=== PATIENT | female | born 1960 | race Caucasian/White ===

== ENCOUNTER 2019-05-27 14:40 | Outpatient (CLI) | payer MEDICARE, MEDICAID, SELFPAY ==
--- NOTE | ~2019-05-27 | CT_ITS ---
EXAMINATION: CT lung screening DATE: 05/27/2019 15:03 INDICATION: Personal history of tobacco dependence, current smoker with 38 pack year history TECHNIQUE: Computed tomography (CT) of the chest was performed without intravenous contrast. The dose -length product (DLP) was 75.15 mGy-cm. Automated exposure control and iterative reconstruction techn leaselockue were employed. COMPARISON: 02/15/2018 FINDINGS: There is a 2 mm nodule of the right upper lobe on image 42. There is a 3 mm nodule of the l eft lower lobe on image 82. The lungs are free of focal airspace opacities. No pathologically enlarge d thoracic lymph nodes are identified. The heart size is normal. Ruptured bilateral breast implants a re again noted. There is no pleural effusion or pneumothorax. A 9 mm cyst is noted in the right hepat ic lobe. There is mild thoracic spondylosis. IMPRESSION: 1. Lung-RADS category 2: Benign appearance or behavior. Continue annual screening with noncontrast lo w-dose chest CT in 12 months. Reviewed, dictated and finalized at location A. IMPRESSION: 1. Lung-RADS category 2: Benign appearance or behavior. Continue annual screeni ng with noncontrast low-dose chest CT in 12 months.
== END 2019-05-27 14:41 | disposition home or self-care (01) ==
PROVIDERS: PCP Emergency Medicine; Visit Provider Emergency Medicine
DX: Z12.2 Encounter for screening for malignant neoplasm of respiratory organs (principal); Z87.891 Personal history of nicotine dependence
CPT/HCPCS: G0297

== ENCOUNTER 2019-07-23 10:09 | Outpatient (CLI) | payer MEDICARE, MEDICAID, SELFPAY ==
--- NOTE | ~2019-07-23 | CT_ITS ---
EXAMINATION: CT abdomen pelvis wo/w con EXAM DATE: 07/23/2019 10:59 INDICATION: Hematuria, weight loss. TECHNIQUE: Spiral CT of the abdomen and pelvis was performed without contrast. The patient was then injected with small bolus intravenous Omnipaque 350, followed by delay of approximately 10 minutes to allow collecting system to opacify. A post contrast scan abdomen and pelvis was performed during inj ection of remaining contrast. A total of 130 cc intravenous contrast was administered. The dose-monet th product (DLP) for this examination was 991.46 mGy-cm. The exposure was tailored according to khushbu ent size (auto mA exposure control), and iterative reconstruction (ASIR) was used as additional dose reduction technique. There is no prior study for comparison. FINDINGS: Calcifications in the pelvis are believed to be phleboliths. There is no hydronephrosis or nephrolithiasis. The kidneys enhance symmetrically. There are no suspicious renal lesions. The ca lyces and opacified portions of ureters are unremarkable, without filling defects or focal suspicious strictures. The bladder is unremarkable. The uterus is unremarkable. The liver, spleen, adrenal glands and pancreas are unremarkable. Gallbladder is unremarkable. No bi liary obstruction. There is no retroperitoneal or pelvic lymphadenopathy. There is mild to moderat e scattered arteriosclerotic disease. The appendix is normal. There is minimal scattered colonic diverticulosis. There is no adjacent infl ammatory change to suggest diverticulitis. The stomach and small bowel are unremarkable. There is ex pected amount of colonic stool. No free intraperitoneal gas. The heart is normal in size. There are no pericardial or pleural effusions. The lung bases are unremarkable. There are no osteoblastic or osteolytic lesions identified. IMPRESSION: 1. No suspicious genitourinary findings. Reviewed, dictated and finalized at location A.
[2019-07-23 10:38] LABS: Estimated Glomerular Filt Rate 57
== END 2019-07-23 10:10 | disposition home or self-care (01) ==
LOC: ANHIMG 10:12
PROVIDERS: PCP Emergency Medicine; Visit Provider Emergency Medicine
DX: R31.9 Hematuria, unspecified (principal); R63.4 Abnormal weight loss
CPT/HCPCS: 36415; 74178; Q9967

== ENCOUNTER 2020-09-09 10:03 | Outpatient (CLI) | payer MEDICARE, SELFPAY ==
--- NOTE | ~2020-09-09 | CT_ITS ---
EXAMINATION: CT lung screening DATE: 09/09/2020 10:27 INDICATION: Personal history of nicotine dependence, current smoker with 38 pack year history TECHNIQUE: Computed tomography (CT) of the chest was performed without intravenous contrast. The dose -length product (DLP) was 68.81 mGy-cm. Automated exposure control and iterative reconstruction techn SiOnyxue were employed. COMPARISON: 05/27/2019 FINDINGS: There is a stable 2 mm nodule of the right upper lobe on image 46. There is a stable 3 mm n odule of the left lower lobe on image 88. No new pulmonary nodules are identified. The lungs are free of airspace opacities. No pathologically enlarged thoracic lymph nodes are identified. The heart siz e is normal. Ruptured bilateral breast glands are normal. There is mild thoracic spondylosis. There i s calcified coronary artery atherosclerosis. A 9 mm cyst is noted in the right hepatic lobe. IMPRESSION: 1. Lung-RADS category 2: Benign appearance or behavior. Continue annual screening with noncontrast lo w-dose chest CT in 12 months. Reviewed, dictated and finalized at location B. IMPRESSION: 1. Lung-RADS category 2: Benign appearance or behavior. Continue annual screeni ng with noncontrast low-dose chest CT in 12 months.
== END 2020-09-09 10:04 | disposition home or self-care (01) ==
PROVIDERS: PCP Emergency Medicine; Visit Provider Emergency Medicine
DX: Z12.2 Encounter for screening for malignant neoplasm of respiratory organs (principal); Z87.891 Personal history of nicotine dependence
CPT/HCPCS: 71271

== ENCOUNTER 2020-10-21 02:14 | Day surgery (SDC) | payer MEDICARE, SELFPAY ==
[2020-09-09 13:27] VITALS: BMI 22.8
--- NOTE | 2020-09-26 08:12 | SUR.PREOP ---
Patient called front counter attendant and stated she was unable to complete her prep this weekend and will not be coming in. Instructed patient to call the office. made aware.
[2020-10-06 14:48] VITALS: BMI 22.8
--- NOTE | 2020-10-21 10:39 | WPDANESEPPF ---
Anes - Initial Pre Proc Eval Procedure: Operation Date: 10/21/20 11:45 Proposed Procedures p Screening Colonoscopy - Kimo George MD Date/Time: 10/21/20 10:39 Surgeon: Kimo George MD Pre Op Diagnosis: neoplasm screening Patient Data Age: 60 Gender: F Height: 1.7 m Weight: 66 kg Allergies Allergy/AdvReac Type Severity Reaction Status Date / Time No Known Allergies Allergy Mild Verified 10/06/20 14:46 Home Medications Medication Instructions Recorded Confirmed Type albuterol sulfate 90 mcg INHALATION DAILY PRN 09/09/20 10/06/20 History fluticasone furoate-vilanterol 100 inh INHALATION DAILY 09/09/20 10/06/20 History [Breo Ellipta] hydrocodone-acetaminophen 7.5 tablet PO Q4-6H PRN 09/09/20 10/06/20 History rosuvastatin 20 mg PO DAILY 09/09/20 10/06/20 History umeclidinium [Incruse Ellipta] 1 inh INHALATION DAILY 09/09/20 10/06/20 History valacyclovir 500 mg PO DAILY 09/09/20 10/06/20 History sod picosulf 10 mg-magnes 3.5 160 ml PO DAILY #160 ml 09/30/20 Rx gram-citric 12 gram/160 mL oral solution Patient hx anesthesia problems: none Family hx anesthesia problems: none PMFSH Past Medical History Medical History Anxiety Chronic pain syndrome COPD (chronic obstructive pulmonary disease) Family History Family History Other Family history of cardiovascular disease Family history of emphysema Hypertension Social History Social History Smoking packs per day: 1.5 Smoking cigarettes per day: 30.0 Years smoked: 45 Smoking pack-years: 67.50 Smoking status: Heavy tobacco smoker Tobacco type: cigarettes Alcohol intake: never Substance use: current Substance use type: marijuana Other substance usage details: 1-2X monthly Living arrangements: alone Gender identity (if verbalized by the patient): Female Spiritual care concerns: No Anes - Eval Final PreProcedure Day of Procedure 10/21/20 10:39 Patient weight: normal Heart: regular rate and rhythm Lungs: decreased breath sounds Airway: Mallampati scale class II Neurological: alert and oriented Last oral intake: >/= 8 hours ASA classification: III Emergent: no Anesthetic plan: proceed Anesthesia type and monitoring: general GIVS and standard monitoring Informed Consent: The patient's anesthetic plan and its attendant risks and benefits were discussed with the patient/family/POA. Questions were solicited and answers provided to the satisfaction of the patient/family/POA.
[2020-10-21 10:45] VITALS: BP 161/73; PULSE 69; RESP 18; TEMP 36.1; O2SAT 97; BMI 22.4
[2020-10-21] MEDS: LACTATED RINGERS 1,000 ML 150 ML IV CONT (11:01)
--- NOTE | 2020-10-21 11:04 | PM.HPGS ---
History of Present Illness History of Present Illness Consent: Risks, benefits, and alternatives have been discussed and questions answered. Patient agrees to proceed with procedure. Chief complaint: neoplasm screening Narrative: Karma Segura is a 60 year old female here for first screening colonoscopy Review of Systems Constitutional: Constitutional: Denies headache(s) and Denies weakness Eyes: Eyes: Denies blurry vision ENT: Reports Normal hearing present, Denies headache(s) and Denies neck pain Cardiovascular: Cardiovascular: Denies chest pain and Denies dyspnea Respiratory: Respiratory: Denies dyspnea Gastrointestinal: Gastrointestinal: Reports no additional gastrointestinal complaints Genitourinary: Genitourinary: Denies dysuria Musculoskeletal: Musculoskeletal: Denies neck pain Integumentary/Breasts: Skin/Breast: Denies dry skin Neurologic: Reports Normal hearing present, Denies headache(s) and Denies weakness Psychiatric: Psychiatric: Denies anxiety Endocrine: Endocrine: Denies change in body appearance Hematologic/Lymphatic: Hematologic/Lymphatic: Denies easy bleeding Allergic/Immunologic: Allergic/Immunologic: Denies urticaria [facility] Past Medical History Medical History (Updated 10/21/20 @ 11:04 by Kimo George MD) Anxiety Chronic pain syndrome Colon cancer screening COPD (chronic obstructive pulmonary disease) Family History Family History Other Family history of cardiovascular disease Family history of emphysema Hypertension Social History Social History Smoking packs per day: 1.5 Smoking cigarettes per day: 30.0 Years smoked: 45 Smoking pack-years: 67.50 Smoking status: Heavy tobacco smoker Tobacco type: cigarettes Alcohol intake: never Substance use: current Substance use type: marijuana Other substance usage details: 1-2X monthly Living arrangements: alone Gender identity (if verbalized by the patient): Female Spiritual care concerns: No Meds Home Medications and Allergies Home Medications Medication Instructions Recorded Confirmed Type albuterol sulfate 90 mcg INHALATION DAILY PRN 09/09/20 10/06/20 History fluticasone furoate-vilanterol 100 inh INHALATION DAILY 09/09/20 10/06/20 History [Breo Ellipta] hydrocodone-acetaminophen 7.5 tablet PO Q4-6H PRN 09/09/20 10/21/20 History rosuvastatin 20 mg PO DAILY 09/09/20 10/06/20 History umeclidinium [Incruse Ellipta] 1 inh INHALATION DAILY 09/09/20 10/06/20 History valacyclovir 500 mg PO DAILY 09/09/20 10/06/20 History sod picosulf 10 mg-magnes 3.5 160 ml PO DAILY #160 ml 09/30/20 Rx gram-citric 12 gram/160 mL oral solution Allergies Allergy/AdvReac Type Severity Reaction Status Date / Time No Known Allergies Allergy Mild Verified 10/21/20 10:43 Vital Signs Vital Signs - 24 hr 10/21/20 10:45 Temperature 97 F L Pulse Rate 69 Respiratory Rate 18 Blood Pressure 161/73 H Pulse Oximetry 97 Exam Const: General: comfortable and no acute distress HENMT: General nose exam: Normal nares present Eyes: General: appearance normal, both eyes and all related structures Neck: Neck: no JVD Resp: Auscultation: clear to auscultation bilaterally Cardio: Rate: regular rate Rhythm: regular rhythm GI: Inspection: non-distended GI Palp: Yes Soft to palpation Skin: General skin exam: normal color Neuro: General: gait normal Speech: normal speech Extrem: General: normal to inspection Psych: Mental Status: mental status grossly normal Assessment and Plan Assessment and plan (1) Colon cancer screening: Code(s): Z12.11 - Encounter for screening for malignant neoplasm of colon Status: Acute Assessment and Plan: colonoscopy
[2020-10-21 11:30] VITALS: BP 118/71; PULSE 63; RESP 17; O2SAT 100
[2020-10-21 11:40] VITALS: BP 142/81; PULSE 58; RESP 17; O2SAT 98
[2020-10-21 11:48] VITALS: BP 152/81; PULSE 57; RESP 17; O2SAT 98
== END 2020-10-21 12:01 | disposition home or self-care (01) ==
PROVIDERS: PCP Emergency Medicine; Visit Provider Internal Medicine Gastroenterology
PROC: 0DJD8ZZ Inspection of Lower Intestinal Tract, Via Natural or Artificial Opening Endoscopic (ICD-10-PCS; CPT 45378; principal; 2020-10-21 11:45)
DX: Z12.11 Encounter for screening for malignant neoplasm of colon (principal); J44.9 Chronic obstructive pulmonary disease, unspecified; G89.29 Other chronic pain; F41.9 Anxiety disorder, unspecified; F17.210 Nicotine dependence, cigarettes, uncomplicated; K57.30 Diverticulosis of large intestine without perforation or abscess without bleeding
CPT/HCPCS: G0121; J2704; J7120

== ENCOUNTER 2021-02-22 09:06 | Outpatient (CLI) | payer MEDICARE, SELFPAY ==
--- NOTE | ~2021-02-22 | MM_ITS ---
EXAMINATION: MM screening [facility] BI w jesica HISTORY: Screening mammogram TECHNIQUE: Craniocaudal and mediolateral oblique 3-D tomosynthesis images were obtained and synthetic 2-D images were generated. CAD analysis was submitted and interpreted. COMPARISON: 09/10/2018 bilateral screening mammogram BREAST PARENCHYMAL COMPOSITION: There are scattered areas of fibroglandular density. FINDINGS: Again noted are bilateral ruptured implants. Some benign calcifications are noted along the implant margins. There is no evidence of suspicious mass, calcification, or architectural distortion to suggest malignancy in either breast. There has been no suspicious interval change. IMPRESSION: 1. No mammographic evidence of malignancy. 2. Recommend routine screening mammography in one year. BI-RADS Category 2: Benign finding(s). Reviewed, dictated and finalized at location A. NISTRATIVE SECRETARY
== END 2021-02-22 09:07 | disposition home or self-care (01) ==
PROVIDERS: PCP Emergency Medicine; Visit Provider Emergency Medicine
DX: Z12.31 Encounter for screening mammogram for malignant neoplasm of breast (principal)
CPT/HCPCS: 77063; 77067

== ENCOUNTER → 2021-05-01 13:14 | Outpatient (REF) | payer MEDICARE, SELFPAY | LOC: ANHLAB 13:14 | PROVIDERS: PCP Emergency Medicine; Visit Provider Nurse Practitioner | DX: D22.39 Melanocytic nevi of other parts of face (principal) | CPT/HCPCS: 88305 ==

== ENCOUNTER 2021-09-09 10:56 | Emergency (ER) | payer MEDICARE, SELFPAY ==
--- NOTE | ~2021-09-09 | XR_ITS ---
XR chest 2V DATE: 09/09/2021 11:54 INDICATION: Cough, shortness of breath TECHNIQUE: PA and lateral views COMPARISON: 09/09/2020 CT lung screening FINDINGS: Normal heart size. Aortic and great vessel calcification. No hilar or mediastinal enlargeme nt. Moderate hyperinflation of the lungs. No pulmonary infiltrate or consolidation, pleural effusion or pulmonary vascular congestion or pneumothorax. Osteopenia. Degenerative spurring of the thoracic spine. IMPRESSION: Moderate hyperinflation; no active cardiopulmonary disease Reviewed, dictated and finalized at location A.
[2021-09-09 11:04] VITALS: BP 155/68; PULSE 66; RESP 18; TEMP 36.2; O2SAT 95
--- NOTE | 2021-09-09 11:09 | ECG_ITS ---
Measurements Intervals [place] Rate: 62 P: 62 MA: 181 QRS: -12 QRSD: 97 T: 54 QT: 412 QTc: 420 Interpretive Statements SINUS RHYTHM NORMAL ECG Electronically Signed On 09-09-2021 12:00:55 CDT by Bal Alvarez D.O.
[2021-09-09 11:30] LABS: Basophils Absolute Auto 0.1 K/mm3 (0.0-0.1); Basophils Percent Auto 0.5 % (0.2-1.2); Eosinophils Percent Auto 0.4 % (0-4.4); Hematocrit 39.7 % (37.0-47.0); Hemoglobin 12.6 g/dL (12.0-15.0); Immature Granulocyte Absolute 0.08 K/mm3 (0.00-0.031); Immature Granulocyte Percent A 0.8 % (0-0.5); Lymphocytes Absolute Auto 2.38 K/mm3 (0.9-3.2); Lymphocytes Percent Auto 23.7 % (18.3-44.2); Mean Corpuscular HGB Conc 31.7 g/dl (32-36); Mean Corpuscular Hemoglobin 32.1 pg (26-34); Mean Corpuscular Volume 101.3 fl (80-100); Mean Platelet Volume 9.2 fl (7.4-10.4); Monocytes Absolute Auto 0.8 K/mm3 (0.1-0.6); Monocytes Percent Auto 8.4 % (2.6-8.5); Neutrophils Absolute Auto 6.7 K/mm3 (1.3-6.7); Neutrophils Percent Auto 66.2 % (45.5-73.1); Platelet Count Result 285 k/mm3 (150-375); Red Blood Count 3.92 M/mm3 (4.2-5.4); Red Cell Distribution Width 13.4 % (11.5-14.5)
[2021-09-09 11:36] LABS: Alanine Aminotransferase 18 U/L (6-35); Alkaline Phosphatase 68 U/L (38-126); Anion Gap 6 mmol/L (8-16); Aspartate Amino Transferase 22 U/L (14-36); Bilirubin,Total 0.3 mg/dL (0.2-1.3); Blood Urea Nitrogen 18 mg/dL (7-17); Calcium 8.7 mg/dL (8.4-10.2); Carbon Dioxide 26 mmol/L (22-30); Chloride 109 mmol/L (98-107); Estimated CRCL calculation 64 ml/min; Estimated Glomerular Filt Rate > 60; Glucose 102 mg/dL (65-110); Potassium 3.8 mmol/L (3.4-5.0); Sodium 141 mmol/L (137-145)
--- NOTE | 2021-09-09 12:22 | ED.SOB ---
HPI - SOB/Dyspnea General Chief Complaint: Shortness of Breath/Dyspnea Stated Complaint: pnuemonia Time Seen by Provider: 09/09/21 11:54 Source: patient History of Present Illness HPI Narrative: Patient presents with shortness of breath. Reports a history of COPD and has been feeling more short of breath with a cough over the past few days. She was seen in urgent care started on steroids and antibiotics feels like her symptoms have not improved so she returned to the ER for further evaluation. Reports diffuse body aches a productive cough without blood denies any fevers she also reports generalized weakness. She denies focal chest pain or abdominal pain she denies any nausea or vomiting. She does report her son had a COVID recently. Patient reports she did take her last dose of steroids this morning Related Data Home Medications Medication Instructions Recorded Confirmed albuterol sulfate 90 mcg/actuation 90 mcg inhalation DAILY PRN 09/09/20 10/06/20 aerosol inhaler Shortness Of Breath fluticasone furoate 100 100 inh inhalation DAILY 09/09/20 10/06/20 mcg-vilanterol 25 mcg/dose inhalation powder (Breo Ellipta) hydrocodone 7.5 mg-acetaminophen 7.5 tablet PO Q4-6H PRN pain back, 09/09/20 10/21/20 325 mg tablet chest and neck rosuvastatin 20 mg tablet 20 mg PO DAILY 09/09/20 10/06/20 umeclidinium 62.5 mcg/actuation 1 inh inhalation DAILY 09/09/20 10/06/20 blister powder for inhalation (Incruse Ellipta) valacyclovir 500 mg tablet 500 mg PO DAILY herpes 09/09/20 10/06/20 Allergies Allergy/AdvReac Type Severity Reaction Status Date / Time No Known Allergies Allergy Mild Verified 05/08/21 15:16 Review of Systems Review of Systems: CONSTITUTIONAL: Reports subjective fevers and chills EYES: Denies visual changes, redness, or discharge. ENT: Denies rhinorrhea, congestion, sore throat, or otalgia. CARDIOVASCULAR: Denies chest pain, palpitations, or edema. RESPIRATORY: Cough and shortness of breath GASTROINTESTINAL: Denies abdominal pain, nausea, vomiting, or diarrhea. GENITOURINARY: Denies dysuria or hematuria. SKIN: Denies rash or itching. MUSCULOSKELETAL: Denies back pain, focal joint pain. NEUROLOGIC: Denies headache, numbness, dizziness, or focal weakness. PSYCHIATRIC: Denies anxiety or depression. All systems reviewed & are unremarkable except as noted in HPI and below PMFSH Past Medical History Medical History Anxiety Chronic pain syndrome Colon cancer screening COPD (chronic obstructive pulmonary disease) Family History Family History Other Family history of cardiovascular disease Family history of emphysema Hypertension Social History Social History Smoking packs per day: 1.5 Smoking cigarettes per day: 30.0 Years smoked: 45 Smoking pack-years: 67.50 Smoking status: Current every day smoker Tobacco type: cigarettes Alcohol intake: never Substance use: current Substance use type: marijuana Other substance usage details: 1-2X monthly Gender identity (if verbalized by the patient): Female Spiritual care concerns: No Exam Narrative: GENERAL: Well-appearing, well-nourished, and in no acute distress. HEAD: Normocephalic, atraumatic. EYES: PERRLA and EOMI. ENT: Nares clear, no rhinorrhea or epistaxis. Mucous membranes moist. NECK: Supple. No masses. No JVD CHEST: No respiratory distress. Mild rhonchi and end expiratory wheezing HEART: Regular rate and rhythm. No murmur heard. Normal peripheral pulses. ABDOMEN: Soft, nontender, nondistended, normal active bowel sounds. EXTREMITIES: Normal range of motion. No edema. SKIN: Warm, dry, no rash. NEURO: No focal deficits. Alert and oriented x3. PSYCH: Normal mood and affect. Course Reevaluation(s) Reevaluation #1: Patient resting comfortably reports
[2021-09-09] MEDS: ALBUTEROL SULFATE NEB 2.5 MG/3 ML INH 15 MG INHALATION (12:33)
[2021-09-09] MEDS: IPRATROPIUM BR 0.02% INH SOLN 0.5 MG/2.5 ML VIAL 1.5 MG INHALATION (12:33)
[2021-09-09 12:35] VITALS: PULSE 60; RESP 24
[2021-09-09 13:10] VITALS: BP 142/86; PULSE 62; RESP 18; O2SAT 97
[2021-09-09 13:20] LABS: SARS-CoV-2 RNA PCR Negative
[2021-09-09 14:04] VITALS: BP 130/88; PULSE 66; PULSE 78; RESP 16; RESP 20; O2SAT 98
== END 2021-09-09 14:15 | disposition home or self-care (01) ==
PROVIDERS: Emergency Medicine; Emergency Provider Emergency Medicine; PCP Emergency Medicine
DX: J44.1 Chronic obstructive pulmonary disease with (acute) exacerbation (principal); F17.210 Nicotine dependence, cigarettes, uncomplicated; Z20.822 Contact with and (suspected) exposure to COVID-19
CPT/HCPCS: 36415; 71046; 80053; 85025; 93005; 94640; 99284; C9803; U0003; U0005

== ENCOUNTER 2022-02-09 14:09 | Outpatient (CLI) | payer MEDICARE, SELFPAY ==
--- NOTE | ~2022-02-09 | CT_ITS ---
EXAMINATION: CT lung screening DATE: 02/09/2022 14:42 INDICATION: Personal history of nicotine dependence TECHNIQUE: Computed tomography (CT) of the chest was performed without intravenous contrast. The dose -length product was 63.80 mGy-cm. Automated exposure control and iterative reconstruction technique w ere employed. COMPARISON: CT dated 09/09/2020 FINDINGS: No significant pleural or pericardial effusion. There is atherosclerosis of the aorta and c oronary arteries. Heart size normal. No thoracic lymphadenopathy. There is a cyst of the liver measur ing 12 mm. Stable small bilateral pulmonary nodules measuring 2 mm or less. No endobronchial lesions. No pneumothorax. No focal airspace consolidation. Moderate thoracic spondylosis. IMPRESSION: 1. Lung-RADS category 2: Benign appearance or behavior. Continue annual screening with noncontrast lo w-dose chest CT in 12 months. Reviewed, dictated and finalized at location A. TORING TECH IMPRESSION: 1. Lung-RADS category 2: Benign appearance or behavior. Continue annual screeni ng with noncontrast low-dose chest CT in 12 months.
== END 2022-02-09 14:10 | disposition home or self-care (01) ==
LOC: ANHIMG 14:18
PROVIDERS: PCP Emergency Medicine; Visit Provider Emergency Medicine
DX: Z12.2 Encounter for screening for malignant neoplasm of respiratory organs (principal); Z87.891 Personal history of nicotine dependence
CPT/HCPCS: 71271

== ENCOUNTER 2023-06-07 15:53 | Outpatient (CLI) | payer MEDICARE, SELFPAY ==
--- NOTE | ~2023-06-07 | CT_ITS ---
EXAMINATION:CT lung screening DATE: 06/07/2023 16:08 INDICATION: Personal history of nicotine dependence. Current smoker with 44 pack year history. TECHNIQUE: Computed tomography (CT) of the chest was performed without intravenous contrast. Automate d exposure control and iterative reconstruction technique were employed. The dose-length product (DLP ) was 65.51 mGy-cm. COMPARISON: Chest CT 02/09/2022 FINDINGS: The lungs demonstrate minimal atelectasis. There is a 2 mm nodule in right upper lobe. Ther e is a 2 mm nodule in left upper lobe. No pleural effusion. The heart size is normal. No pericardial effusion. There are coronary artery calcifications. Aortic atherosclerosis is noted. There is an 11 m m cyst in the liver. There are ruptured bilateral breast implants. There is moderate cervical and tho racic spondylosis. IMPRESSION: 1. Lung-RADS category 2: Benign appearance or behavior. Continue annual screening with noncontrast lo w-dose chest CT in 12 months. Reviewed, dictated and finalized at location A. IMPRESSION: 1. Lung-RADS category 2: Benign appearance or behavior. Continue annual screeni ng with noncontrast low-dose chest CT in 12 months.
== END 2023-06-07 15:54 | disposition home or self-care (01) ==
LOC: ANHIMG 15:56
PROVIDERS: PCP Emergency Medicine; Visit Provider Emergency Medicine
DX: Z12.2 Encounter for screening for malignant neoplasm of respiratory organs (principal); Z87.891 Personal history of nicotine dependence
CPT/HCPCS: 71271

== ENCOUNTER 2023-08-09 15:03 | Outpatient (CLI) | payer MEDICARE, SELFPAY ==
--- NOTE | ~2023-08-09 | MM_ITS ---
EXAMINATION: MM screening [facility] BI w jesica HISTORY: Screening TECHNIQUE: Craniocaudal and mediolateral oblique 3-D tomosynthesis images were obtained and synthetic 2-D images were generated. CAD analysis was submitted and interpreted. COMPARISON: Comparison to multiple prior studies sequentially, with oldest reviewed study dated 05/2018. BREAST PARENCHYMAL COMPOSITION: Not dense: There are scattered areas of fibroglandular density. FINDINGS: There is no evidence of suspicious mass, calcification, or architectural distortion to sugg est malignancy in either breast. There has been no suspicious interval change. IMPRESSION: 1. No mammographic evidence of malignancy. 2. Recommend routine screening mammography in one year. BI-RADS Category 1: Negative Reviewed, dictated and finalized at location B.
== END 2023-08-09 15:04 | disposition home or self-care (01) ==
LOC: ANHIMG 15:05
PROVIDERS: PCP Emergency Medicine; Visit Provider Physician Assistant
DX: Z12.31 Encounter for screening mammogram for malignant neoplasm of breast (principal)
CPT/HCPCS: 77063; 77067

== ENCOUNTER 2023-11-01 13:33 | Outpatient (CLI) | payer MEDICARE, SELFPAY ==
--- NOTE | ~2023-11-01 | DEXA_ITS ---
Bone Density Report Name: ELLEN BLUE Age: 63 Sex: Female Ethnicity: White Date of : 1960 Indication: postmenopausal; screening for osteoporosis; height loss; Referring Provider: FLORIDALMA HIGGINS Study: Bone densitometry was performed. Exam Date: November 01, 2023 Accession number: [id number] Bone Density: Region BMD T-score Z-score Classification AP Spine(L1-L4) 0.991 -0.5 1.0 Normal Femoral Neck (Left) 0.671 -1.6 -0.3 Osteopenia Total Hip (Left) 0.834 -0.9 0.1 Normal Femoral Neck (Right) 0.698 -1.4 0.0 Osteopenia Total Hip (Right) 0.888 -0.4 0.6 Normal Total Hip Mean 0.861 -0.7 0.4 Normal World Health Organization criteria for BMD impression classify patients as: Normal (T-score at or above -1.0), Osteopenia (T-score between -1.0 and -2.5), or Osteoporosis (T-score at or below -2.5). 10-year Fracture Risk(1): Major Osteoporotic Fracture 8.2% Hip Fracture 1.4% Reported Risk Factors: [place] (), Neck BMD=0.671, BMI=22.0, smoking (1) FRAX(R) Version 3.08. Fracture probability calculated for an untreated patient. Fracture probability may be lower if the patient has received treatment. Previous Exams: Region Exam Age BMD T-score BMD Change BMD Change Date g/cm2 vs Baseline vs Previous AP Spine (L1-L4) 11/01/2023 63 0.991 -0.5 -0.028 (-2.7%) -0.028 (-2.7%) 09/10/2018 58 1.019 -0.3 Total Hip(Left) 11/01/2023 63 0.834 -0.9 -0.023 (-2.7%) -0.023 (-2.7%) 09/10/2018 58 0.858 -0.7 Total Hip(Right) 11/01/2023 63 0.888 -0.4 0.009 (1.0%) 0.009 (1.0%) 09/10/2018 58 0.879 -0.5 *Denotes significance at 95% confidence level, LSC for AP Spine = 0.022 g/cm2, LSC for Total Hip = 0.027 g/cm2 Clinical Information Provided by Patient: Smokes Patient maximum height was 67 Menopause Age: 50 No regular weight bearing exercise Drinks caffeinated beverages Onset of menses at age 16 Number of children 2 Impression: The patient has low bone mass, based on the Left Femoral Neck T-score. The patient has an estimated ten-year risk of hip fracture of 1.4% and an estimated ten-year risk of major fracture of 8.2%, based on the WHO FRAX algorithm. The patient has risk factors, including: smoking. The BMD for the AP Spine (L1-L4) decreased, changing by -2.7% since the last DXA exam. Discussion: BONE DENSITY IS LOW AT ONE OR MORE SKELETAL SITES. This patient's lowest T-score is low at one or more skelet
== END 2023-11-01 13:34 | disposition home or self-care (01) ==
PROVIDERS: PCP Emergency Medicine; Visit Provider Emergency Medicine
DX: Z78.0 Asymptomatic menopausal state (principal); M85.852 Other specified disorders of bone density and structure, left thigh; M85.851 Other specified disorders of bone density and structure, right thigh
CPT/HCPCS: 77080

== ENCOUNTER 2025-01-18 15:05 | Outpatient (CLI) | payer MEDICARE, SELFPAY ==
--- NOTE | ~2025-01-18 | CT_ITS ---
EXAMINATION:CT lung screening DATE: 01/18/2025 15:33 INDICATION: Screening TECHNIQUE: Computed tomography (CT) of the chest was performed without intravenous contrast. The dose-length product (DLP) was 65.70 mGy-cm. COMPARISON: None. FINDINGS: No suspicious nodules or masses. Heart and great vessels are stable. No consolidation effusion or pneumothorax. Degenerative changes in the bones which appear intact. Bilateral ruptured breast implants unchanged in appearance. No acute process seen in the visualized portions of the upper abdomen. IMPRESSION: Stable screening chest CT. LUNG RADS 2. Correlate with follow-up low-dose lung cancer screening chest CT in 12 months. Reviewed, dictated and finalized at location A. R LINEMAN IMPRESSION: Stable screening chest CT. LUNG RADS 2. Correlate with follow-up lo w-dose lung cancer screening chest CT in 12 months.
--- OUTSIDE RECORDS SUMMARY | 2025-01-18 15:09 | XMS_ITS | Clinical Summary ---
Author Organization [facility] Address [address] [place] [address] Care Team Providers Care Monument Carver Name Role Phone Diaz Bustos MD Primary Care Provider [phone] Source Comments [facility],non-owned Affiliates and Associated Physician Practices is amultiple site organization consisting of ambulatory clinics and hospital sitesin [place], [place], [place] and [place]. This disclosure is being madepursuant to the Care Everywhere program and may not contain all information available regarding this patient. Last updated 17.[facility] Allergies No known active allergies Medications * Be aware that medications may not be up to date on this document. Alwaysverify current medications with the patient. umeclidinium (INCRUSE ELLIPTA) 62.5 MCG/INH inhaler Inhale 1 puff by mouth DAILY. 1 Each 11 7 Active BREO ELLIPTA 100-25 MCG/INH inhaler Inhale 1 puff by mouth once daily 9 Active simvastatin (ZOCOR) 20 MG tablet Take 20 mg by mouth at bedtime Active albuterol (PROVENTIL;VENT EAMON) (2.5 MG/3ML) 0.083% nebulizer solution Inhale 3 mL by mouth 9 Active albuterol HFA (VENTOLIN HFA) 108 (90 Base) MCG/ACT inhaler inhale 2 puff by inhalation route every 4 - 6 hours as needed as needed 6 Active vitamin D, ergocalciferol, (DRISDOL) 1.25 MG (52243 UT) capsule take 1 capsule by oral route every week 9 Active valsartan-hydro CHLOROthiazide (DIOVAN HCT) 320-25 MG tablet valsartan 320 mg-hydrochloroth iazide 25 mg tablet 9 Active HYDROcodone-agus taminophen (NORCO) 7.5-325 MG tablet Take 1 tablet by mouth 0 Active rosuvastatin (CRESTOR) 20 MG tablet rosuvastatin 20 mg tablet 0 Active metroNIDAZOLE (FLAGYL) 500 MG tablet Take 500 mg by mouth once daily 0 Active nitrofurantoin monohyd macro crystals (MACROBID) 100 MG capsule Take 1 capsule by mouth 2 times daily with morning and evening meal 6 capsule 0 Active Active Problems Problem Noted Date Diagnosed Date Respiratory bronchiolitis interstitial lung dise ase 01/01/2017 Other forms of dyspnea 10/22/2016 Nicotine dependence, uncomplicated 10/22/2016 Centrilobular emphysema 10/22/2016 Other nonspecific abnormal finding of lung field 10/22/2016 Immunizations Immunization Administration Dates Next Due INFLUENZA VACCINE, TRIV. (AF LURIA, FLUZONE TRIVALENT; 6MO+) (IIV3) 03/24/2016 INFLUENZA VACCINE 01/01/2017 INFLUENZA VACCINE, QUADR. (F LUZONE; FLULAVAL; FLUARIX; AFLURIA QUADRIVALENT; 6MO+), 0.5 ML (IIV4) 01/06/2019,04/29/2018 Influenza Intradermal 01/01/2017 PNEUMOCOCCAL PPSV23 03/24/2016,05/12/2015 Family History Medical History Relation Name Comments CAD (Coronary Artery Disease) Father Hypertension Father COPD - Chronic Obstructive Pulmonary Disease Mother Relation Name Status Comments Father Mother Social History Tobacco Use Types Packs/Day Years Used Date Smoking Tobacco: Every Day Cigarettes 1 47.7 Started: 04/29/1977 Smokeless Tobacco: Current Tobacco Cessation:Ready to Q uit: Yes; Counseling Given: Yes Alcohol Use Standard Drinks/Week Comments Not Currently 1 (1 standard drink = 0.6 oz pur e alcohol) Comments No Sex and Gender Information Value Date Recorded Sex Assigned at Not on file Legal 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 Gender Identity Not on file Sexual Orientation Not on file Last Filed Vital Signs Vital Sign Reading Time Taken Comments Blood Pressure 128/77 12/01/2019 2:40 PM CDT Pulse 73 12/01/2019 2:40 PM CDT Temperature 36.9 C (98.4 F) 12/01/2019 2:40 PM CDT Respiratory Rate 20 01/06/2019 9:43 AM CDT Oxygen Saturation 97% 12/01/2019 2:40 PM CDT Inhaled Oxygen Concentration - - Weight 66.3 kg (146 lb 3.2 oz) 12/01/2019 2:40 P M CDT Height 170.2 cm (5' 7) 12/01/2019 2:40 PM CDT Body Mass Index 22.9 12/01/2019 2:40 PM CDT Plan of Treatment Health Maintenance Due Date Last Done Comments COLOGUARD (AGES 45-75) - COLON CA SCREENING 1962 COLON MONITORING 1962 COLONOSCOPY - COLON CA SCREENING 1962 CT COLONOGRAPHY - COLON CA SCREENING 1962 Colorectal Cancer Screening 1962 FIT - COLON CA SCREENING 1962 FLEX SIG - COLON CA SCREENING 1962 MAMMOGRAM 1962 HIV SCREENING 1977 HEPATITIS C SCREENING 08/08/1980 DTAP/TDAP/TD VACCINES (1 - Tdap) 1981 ZOSTER VACCINE (1 of 2) 2012 PNEUMOCOCCAL VACCINE 50+ (2 of 2 - PCV) 03/24/2017 03/24/2016, 05/12/2015 DEPRESSION SCREENING 03/11/2024 COVID-19 VACCINE ( season) 2024 INFLUENZA VACCINE (#1) 2024 9, 04/29/2018, 01/01/2017, Additional history exists Respiratory Syncytial Virus (RSV) Vaccine Pt: or over 60 yrs (1 - 1-dose 75+ series) 2037 HEPATITIS B VACCINE Aged Out No longe r eligible based on patient's age to complete this topic HIB VACCINE Aged Out No longer eligi ble based on patient's age to complete this topic HPV VACCINE Aged Out No longer eligi ble based on patient's age to complete this topic MENINGOCOCCAL (Group B) VACCINE SHARED DECISION-MAKING Aged Out No longer eligible based on patient's age to complete this topic MENINGOCOCCAL GROUPS A/C/Y/W VACCINE Aged Out No longer eligible based on patient's age to complete this topic Insurance MEDICAID - [place]ARE [facility] Care Teams Monument Carver Relationship Specialty Start Date End Date Diaz Bustos MD [address] [place] [address] PCP - General 08/14/16
--- OUTSIDE RECORDS SUMMARY | 2025-01-18 15:09 | XMS_ITS | Clinical Summary ---
Author Organization [facility] Address [address] [place] [address] Phone Care Team Providers Care Cable Tv Installer Name Role Phone Diaz Bustos Primary Care Provider [phone] Allergies No known active allergies Medications lisinopril (PRINIVIL, ZESTRIL) 10 MG Tablet Take 1 Tab by mouth daily. 90 Tab 3 6 Active HYDROcodone-agus taminophen (NORCO) 5-325 MG Tablet Take 1-2 Tabs by mouth every 6 hours as needed for Pain. 30 Tab 0 6 Active formoterol (FORADIL) 12 MCG Capsule take 1 Cap by inhalation daily. 30 Cap 3 6 Active Additional Information Patient not taking.Reported on 01/18/2020 albuterol (PROVENTIL HFA, VENTOLIN HFA) 108 (90 BASE) MCG/ACT Aerosol Solution take 2 Puffs by inhalation every 4 hours as needed for Wheezing. 8.5 g 0 6 Active predniSONE (DELTASONE) 10 MG Tablet 40 mg po daily x 3 days 30 mg po daily x 3 days 20 mg po dialy x 3 days 10 mg po daily x 3 days 30 Tab 0 6 Active Additional Information Patient not taking.Reported on 01/18/2020 umeclidinium (INCRUSE ELLIPTA) 62.5 MCG/INH AEROSOL POWDER, BREATH ACTIVATED take by inhalation. 7 Active AEROSPAN 80 MCG/ACT Aerosol Solution INHALE 2 PUFFS BID 0 7 Active losartan-hydroc hlorothiazide (HYZAAR) 100-12.5 MG Tablet 08/07/201 7 Active albuterol (PROVENTIL HFA, VENTOLIN HFA) 108 (90 Base) MCG/ACT Aerosol Solution take 2 Puffs by inhalation every 6 hours as needed for Wheezing. 1 Inhaler 7 Active guaiFENesin-cod eine (CHERATUSSIN AC) 100-10 MG/5ML Syrup Take 5 mL by mouth every 4 hours as needed for Cough. 120 mL 7 Active Additional Information Patient not taking.Reported on 01/18/2020 azithromycin (Zithromax Z-Wu) 250 MG TabletIndicatio ns:Cough 2 tab(s) daily for 1 day, then 1 tab(s) daily for days 2-5. 6 Tab 1 Active Active Problems No known active problems Immunizations Immunization Administration Dates Next Due Pneumococcal Vaccine Adult - 23 Valent 6 Family History Relation Name Status Comments Father Mother Social History Tobacco Use Types Packs/Day Years Used Date Smoking Tobacco: Every Day Cigarettes Smokeless Tobacco: Never Tobacco Cessation:Ready to Q uit: Yes; Counseling Given: No Alcohol Use Standard Drinks/Week Comments No 0 (1 standard drink = 0.6 oz pur e alcohol) Comments No Sex and Gender Information Value Date Recorded Sex Assigned at Not on file Legal Sex Female 11:49 PM CDT Gender Identity Not on file Sexual Orientation Not on file Last Filed Vital Signs Vital Sign Reading Time Taken Comments Blood Pressure 134/60 04/11/2020 12:39 PM LAWN SPRINKLER INSTALLER Pulse 74 04/11/2020 12:39 PM LAWN SPRINKLER INSTALLER Temperature 36.4 C (97.6 F) 04/11/2020 12:39 PM LAWN SPRINKLER INSTALLER Respiratory Rate 18 04/11/2020 12:39 PM LAWN SPRINKLER INSTALLER Oxygen Saturation 96% 04/11/2020 12:39 PM LAWN SPRINKLER INSTALLER Inhaled Oxygen Concentration - - Weight 66.2 kg (146 lb) 04/11/2020 12:39 PM LAWN SPRINKLER INSTALLER Height 170.2 cm (5' 7) 01/31/2017 6:05 AM LAWN SPRINKLER INSTALLER Body Mass Index 22.87 01/31/2017 6:05 AM LAWN SPRINKLER INSTALLER Plan of Treatment Health Maintenance Due Date Last Done Comments Hepatitis C Virus (HCV) Screening 1962 TdaP Immunization 1962 Pap Smear 08/14/1983 Cervical Cancer Screening (CCS) 1992 HPV/Cotest 1992 Cologuard 08/14/2007 Colonoscopy 08/14/2007 Colorectal Cancer Screening 08/14/2007 Immunochemical Fecal Occult Blood 08/14/2007 Zoster Immunization (1 of 2) 2012 Pneumococcal Immunization (5 0+ years) (2 of 2 - PCV) 05/11/2016 05/12/2015 Medicare Initial AWV [id number] 08/09/2018 Influenza Immunization (#1) 2024 12/03/2015 SARS-COV-2 Immunization (3 - 2024- season) 2024 08/25/2020, 08/04/2020 Respiratory Syncytial Virus (RSV) Immunization (Adult) (1 - 1-dose 75+ series) 2037 Pneumococcal Immunization Combined Discontinued 05/12/2015 Mammogram Discontinued 08/25/2015 Hepatitis B Immunization Aged Out No longer eligible based on patient's age to complete this topic Human Papillomavirus (HPV) Immunization Aged Out No longer eligible based on patient's age to complete this topic Meningococcal Immunization (ACWY) Aged Out No longer eligible based on patient's age to complete this topic Rotavirus Immunization Aged Out No lo nger eligible based on patient's age to complete this topic Procedures Procedure Name Priority Date/Time Associated Diagnosis Comments ENRIQUE DIAG BILATERAL W IMPLANTS DIGITAL W CAD Routine 08/25/2015 11:38 AM CDT Pain due to any device, implant or graft, initial encounter from Last 3 Months or Most Recently Relevant to Health Maintenance Results * ENRIQUE DIAG BILATERAL W IMPLANTS DIGITAL W CAD (08/25/2015 11:38 AM CDT) Anatomical Region Laterality Modality breast Bilateral Mammography 08/25/2015 10:5 0 AM CDT Narrative 08/25/2015 5:18 PM CDT - ENRIQUE DIAG BILATERAL W IMPLANTS DIGITAL W CAD BILATERAL DIGITAL DIAGNOSTIC MAMMOGRAM WITH CAD WITH MEDIOLATERAL OBLIQUE CRANIOCAUDAL WITH AUGMENTATION: 08/25/2015 The study was acquired using digital technology and interpreted from soft copy. Current study was also evaluated with ICAD version 7.2. CLINICAL: New baseline - diagnostic exam. Patient complains of recent pain right axilla for 2 months but it has improved. She states it feels like a pinched nerve in her shoulder area. Both implants are ruptured. No personal history of cancer. No family history of breast cancer. COMPARISONS: No prior exams were available for comparison. BREAST TISSUE: There are scattered fibroglandular densities in both breasts. MAMMOGRAPHIC FINDINGS: Bilateral subglandular saline breast implants are ruptured. The presence of implants limits the sensitivity of mammography. A radiopaque marker was placed over the site of focal pain in the right axilla. There is no abnormality at this site. Targeted ultrasound will be performed. There is a subareolar focal asymmetry, which may represent a cyst or focal duct ectasia. Targeted ultrasound will be performed. Otherwise, no significant masses, calcifications, or other findings are seen in either breast. ULTRASOUND FINDINGS: Targeted right axillary ultrasound in the area of pain demonstrated normal-appearing tissue. There is no lymphadenopathy. Right subareolar ultrasound demonstrated focal benign duct ectasia, corresponding to the mammographic focal asymmetry. IMPRESSION: BI-RAD 2 BENIGN 1. No evidence of malignancy in either breast. 2. No mammographic or sonographic abnormality at the site of pain in the right axilla. Base any further evaluation on clinical examination. 3. Benign right subareolar duct ectasia. 4. Bilateral ruptured saline implants. A 1 year screening mammogram is recommended. The patient has been or will be contacted. Kevin Brar M.D. nh/:08/25/2015 12:10:04 Handle Assembler: Lilly GREGORY)([place]), [facility] letter sent: Normal Exam Reading location: [facility] BI-RADS: 2 Benign Procedure Note Kevin Brar MD - 08/25/2015 - ENRIQUE DIAG BILATERAL W IMPLANTS DIGITAL W CAD BILATERAL DIGITAL DIAGNOSTIC MAMMOGRAM WITH CAD WITH MEDIOLATERAL OBLIQUE CRANIOCAUDAL WITH AUGMENTATION: 08/25/2015 The study was acquired using digital technology and interpreted from soft copy. Current study was also evaluated with ICAD version 7.2. CLINICAL: New baseline - diagnostic exam. Patient complains of recent pain right axilla for 2 months but it has improved. She states it feels like a pinched nerve in her shoulder area. Both implants are ruptured. No personal history of cancer. No family history of breast cancer. COMPARISONS: No prior exams were available for comparison. BREAST TISSUE: There are scattered fibroglandular densities in both breasts. MAMMOGRAPHIC FINDINGS: Bilateral subglandular saline breast implants are ruptured. The presence of implants limits the sensitivity of mammography. A radiopaque marker was placed over the site of focal pain in the right axilla. There is no abnormality at this site. Targeted ultrasound will be performed. There is a subareolar focal asymmetry, which may represent a cyst or focal duct ectasia. Targeted ultrasound will be performed. Otherwise, no significant masses, calcifications, or other findings are seen in either breast. ULTRASOUND FINDINGS: Targeted right axillary ultrasound in the area of pain demonstrated normal-appearing tissue. There is no lymphadenopathy. Right subareolar ultrasound demonstrated focal benign duct ectasia, corresponding to the mammographic focal asymmetry. IMPRESSION: BI-RAD 2 BENIGN 1. No evidence of malignancy in either breast. 2. No mammographic or sonographic abnormality at the site of pain in the right axilla. Base any further evaluation on clinical examination. 3. Benign right subareolar duct ectasia. 4. Bilateral ruptured saline implants. A 1 year screening mammogram is recommended. The patient has been or will be contacted. Kevin Brar M.D. nh/:08/25/2015 12:10:04 Handle Assembler: Lilly BUSBY(R)(M), [facility] letter sent: Normal Exam Reading location: [facility] BI-RADS: 2 Benign Jd Levin MD IMG MAMMO ORDERABLES Final Result from Last 3 Months or Most Recently Relevant to Health Maintenance Insurance MEDICAID [place] MEDICARE [facility] on file Advance Directives * Full Code (Latest Code Status on File) Date Activated Date Inactivated Comments 06/20/2015 1:34 PM 06/21/2015 11:53 AM CPR-Full Tr eatment: FULL ARREST: Attempt Resuscitation/CPR wit intubation and mechanical ventilation. PRE-ARREST: Use entire range of life support measures to stabilize the patient. * Full Code Date Activated Date Inactivated Comments 05/12/2015 8:09 AM 05/12/2015 1:38 PM Full Code: FULL ARREST: Attempt Resuscitation/CPR and use intubation and mechanical ventilation as indicated. PRE-ARREST: Use all measures to stabilize patient. Care Teams Cable Tv Installer Relationship Specialty Start Date End Date Diaz Bustos [address] [place] [address] PCP - General Family Medicine 01/31/17
== END 2025-01-18 15:06 | disposition home or self-care (01) ==
PROVIDERS: PCP Emergency Medicine; Visit Provider Emergency Medicine
DX: Z12.2 Encounter for screening for malignant neoplasm of respiratory organs (principal); Z87.891 Personal history of nicotine dependence
CPT/HCPCS: 71271